=== PATIENT | male | born 1930 | race Caucasian/White ===

== ENCOUNTER 2018-04-13 08:09 | Inpatient (IN) | payer OTHER ==
[~2018-04-13] VITALS: Ht 167.6 cm; Wt 43.5 kg
[2018-04-13 08:09] VITALS: BP_SYST 120
[~2018-04-13 08:09] MED LIST: DOCU250C75 PO; FLUT1DIS5 INH; HYDR-1189 PO; LEVA1.2527 NEB; LEVO500T20 PO; OMEP20CA10 PO; POLY50DR OP; PRED20TA PO; URSO300C24 PO
[2018-04-13 08:43] LABS: BASOPHILS % (AUTO) 0.5 % (0.0-2.0); EOSINOPHILS # (AUTO) 0.1 K/uL (0.0-0.4); EOSINOPHILS % (AUTO) 2.9 % (0.0-4.0); HEMATOCRIT 34.6 % (36-54); HEMOGLOBIN 10.9 g/dL (14.0-18.0); LYMPHOCYTES # (AUTO) 0.7 K/uL (1.0-5.5); LYMPHOCYTES % (AUTO) 15.7 % (20.5-51.5); MEAN CORPUSCULAR HEMOGLOBIN 29 pg (27-31); MEAN CORPUSCULAR HGB CONC 32 % (32-36); MEAN CORPUSCULAR VOLUME 93 fL (79.0-98.0); MONOCYTES # (AUTO) 0.4 K/uL (0.0-1.0); MONOCYTES % (AUTO) 9.4 % (1.7-9.3); NEUTROPHILS # (AUTO) 3.4 K/uL (1.8-7.7); NEUTROPHILS % (AUTO) 71.5 % (40.0-70.0); PLATELET COUNT (AUTO) 351 K/uL (130-430); RED BLOOD CELL COUNT(AUTO) 3.72 MIL/uL (4.2-6.2); RED CELL DISTRIBUTION WIDTH 15.7 % (9.0-15.0); WHITE BLOOD COUNT (AUTO) 4.6 K/uL (4.8-10.8)
[2018-04-13 09:17] LABS: ANION GAP 11 (5-15); CALCIUM 8.3 mg/dL (8.4-11.0); CHLORIDE 107 mmol/L (98-107); CREATININE 0.77 mg/dL (0.55-1.30); GLUCOSE 136 mg/dL (70-99); POTASSIUM 4.2 mmol/L (3.5-5.1); SODIUM SERUM 143 mmol/L (136-145); UREA NITROGEN, BLOOD 13 mg/dL (8-21)
[2018-04-13 09:22] LABS: ALANINE AMINOTRANSFERASE 18 U/L (12-78); ALBUMIN 2.9 g/dL (3.4-4.8); ASPARTATE AMINOTRANSFERASE 12 U/L (10-37); TOTAL BILIRUBIN 0.2 mg/dL (0.0-1.0)
[2018-04-13 09:49] LABS: PROTHROMBIN TIME 10.4 SECS (9.5-12.5)
[2018-04-13 12:49] VITALS: BP_SYST 102
[2018-04-13 17:39] VITALS: BP_SYST 110
[2018-04-13 20:00] VITALS: BP_SYST 109
[2018-04-13 23:55] VITALS: BP_SYST 106
[2018-04-14 05:01] VITALS: BP_SYST 144
[2018-04-14 06:59] LABS: ANION GAP 9 (5-15); CHLORIDE 105 mmol/L (98-107); POTASSIUM 3.6 mmol/L (3.5-5.1); SODIUM SERUM 138 mmol/L (136-145)
[2018-04-14 07:00] LABS: BASOPHILS % (AUTO) 1.4 % (0.0-2.0); CALCIUM 7.7 mg/dL (8.4-11.0); CREATININE 0.77 mg/dL (0.55-1.30); EOSINOPHILS # (AUTO) 0.2 K/uL (0.0-0.4); GLUCOSE 148 mg/dL (70-99); HEMATOCRIT 28.1 % (36-54); HEMOGLOBIN 8.9 g/dL (14.0-18.0); LYMPHOCYTES % (AUTO) 28.7 % (20.5-51.5); MEAN CORPUSCULAR HEMOGLOBIN 29 pg (27-31); MEAN CORPUSCULAR HGB CONC 32 % (32-36); MEAN CORPUSCULAR VOLUME 93 fL (79.0-98.0); MONOCYTES # (AUTO) 0.4 K/uL (0.0-1.0); MONOCYTES % (AUTO) 12.2 % (1.7-9.3); NEUTROPHILS # (AUTO) 1.8 K/uL (1.8-7.7); NEUTROPHILS % (AUTO) 52.7 % (40.0-70.0); PLATELET COUNT (AUTO) 254 K/uL (130-430); RED BLOOD CELL COUNT(AUTO) 3.04 MIL/uL (4.2-6.2); RED CELL DISTRIBUTION WIDTH 15.9 % (9.0-15.0); UREA NITROGEN, BLOOD 11 mg/dL (8-21)
[2018-04-14 07:10] LABS: WHITE BLOOD COUNT (AUTO) 3.4 K/uL (4.8-10.8)
[2018-04-14 07:55] VITALS: BP_SYST 136
[2018-04-14 09:35] LABS: CHOLESTEROL 141 mg/dL (<200); HDL CHOLESTEROL 45 mg/dL (>45); LDL CHOLESTEROL 90 mg/dL (<100); TRIGLYCERIDES 86 mg/dL (30-150)
[2018-04-14 11:26] VITALS: BP_SYST 97
[2018-04-14 12:05] VITALS: BP_SYST 101; BP_SYST 110
[2018-04-14 16:00] VITALS: BP_SYST 114
[2018-04-14 20:00] VITALS: BP_SYST 125
[2018-04-15 01:30] VITALS: BP_SYST 127
[2018-04-15 02:38] VITALS: BP_SYST 127
[2018-04-15 07:52] VITALS: BP_SYST 126
[2018-04-15 12:48] VITALS: BP_SYST 113
[2018-04-15 12:57] VITALS: BP_SYST 113; BP_SYST 121
[2018-04-15 16:06] VITALS: BP_SYST 121
== END 2018-04-15 20:26 | disposition home health service (06) | DRG 280 ==
LOC: SED 08:09 → STU 10:45 → INTOOBSV 10:45 → STU 12:06 → OBSVTOIN 04-14 16:57
PROVIDERS: ADMIT Internal Medicine; ATTEND Internal Medicine
DX: I21.4 Non-ST elevation (NSTEMI) myocardial infarction (principal); E43 Unspecified severe protein-calorie malnutrition; Z68.1 Body mass index [BMI] 19.9 or less, adult; S09.90XA Unspecified injury of head, initial encounter; J44.9 Chronic obstructive pulmonary disease, unspecified; K21.9 Gastro-esophageal reflux disease without esophagitis; C76.2 Malignant neoplasm of abdomen; I45.10 Unspecified right bundle-branch block; F17.210 Nicotine dependence, cigarettes, uncomplicated; Z51.5 Encounter for palliative care; Z66 Do not resuscitate; D63.8 Anemia in other chronic diseases classified elsewhere; Z88.1 Allergy status to other antibiotic agents; Z79.899 Other long term (current) drug therapy; Z90.49 Acquired absence of other specified parts of digestive tract; Z85.07 Personal history of malignant neoplasm of pancreas; W18.39XA Other fall on same level, initial encounter; Y93.89 Activity, other specified; Y92.89 Other specified places as the place of occurrence of the external cause; Y99.8 Other external cause status
CPT/HCPCS: 36415; 70450-TC; 71045; 80048; 80053; 80061; 84484; 85025; 85610-TC; 85730-TC; 93005; 93306; 97110-GP; 97116-GP; 97530-GP; 99285; G0378